=== PATIENT | female | born 1945 | race Caucasian/White ===

== ENCOUNTER 2021-05-23 08:05 | Day surgery (SDC) | payer MEDICARE ==
[~2021-05-23] VITALS: Ht 170.2 cm; Wt 72.1 kg
[~2021-05-23 08:05] MED LIST: ESTR-71 TD; LEVO125T PO
[2021-05-23] MEDS ORDERED: normal saline 1000ml 1,000 ML IV PRN (08:30)
[2021-05-23] MEDS ORDERED: CARV6.253 PO (08:48)
[2021-05-23] MEDS ORDERED: UBID200C37 PO (08:49)
[2021-05-23] MEDS ORDERED: [UNRECOGNIZED DRUG - CODE] PO (08:50)
[2021-05-23] MEDS ORDERED: ZINC50TA67 PO (08:52)
[2021-05-23] MEDS ORDERED: Tumeric PO (08:52)
[2021-05-23] MEDS ORDERED: Vitamin D3 PO (08:55)
[2021-05-23] MEDS ORDERED: OMEG1CAP13 PO (08:55)
[2021-05-23 09:30] VITALS: BP 155/91
== END 2021-05-23 12:03 | disposition home or self-care (01) ==
LOC: SSTAY O 08:05
PROVIDERS: ATTEND Preventive Medicine Aerospace Medicine
DX: C56.9 Malignant neoplasm of unspecified ovary (principal); Z53.8 Procedure and treatment not carried out for other reasons; B99.8 Other infectious disease; I10 Essential (primary) hypertension; Z20.822 Contact with and (suspected) exposure to COVID-19; Z79.899 Other long term (current) drug therapy
CPT/HCPCS: 87635; C9803

== ENCOUNTER 2021-06-06 07:28 | Day surgery (SDC) | payer MEDICARE ==
[2021-06-06] VITALS (10 sets, daily range): BP systolic 125–152; BP diastolic 63–83
[~2021-06-06] VITALS: Ht 170.2 cm; Wt 70.1 kg
[~2021-06-06 07:28] MED LIST changes: +CARV6.253 PO; -ESTR-71 TD; +OMEG1CAP13 PO; +Tumeric PO; +UBID200C37 PO; +Vitamin D3 PO; +ZINC50TA67 PO; +[UNRECOGNIZED DRUG - CODE] PO
[2021-06-06] MEDS ORDERED: LIDOcaine 1% 30ml preserv. free vial SQ STA (07:43)
[2021-06-06] MEDS ORDERED: albumin 25% 100mL bottle x 1 IV PRN (07:50)
[2021-06-06] MEDS ORDERED: SPIR25TA5 PO (07:55)
== END 2021-06-06 10:42 | disposition home or self-care (01) ==
LOC: SSTAY O 07:28
PROVIDERS: ATTEND Radiology Diagnostic Radiology
DX: R18.8 Other ascites (principal); E03.9 Hypothyroidism, unspecified; Z85.43 Personal history of malignant neoplasm of ovary; Z98.890 Other specified postprocedural states; Z90.710 Acquired absence of both cervix and uterus; Z88.8 Allergy status to other drugs, medicaments and biological substances; Z88.5 Allergy status to narcotic agent; Z91.013 Allergy to seafood; Z79.899 Other long term (current) drug therapy
CPT/HCPCS: 49083; J3490; P9047

== ENCOUNTER 2021-06-13 08:38 | Day surgery (SDC) | payer MEDICARE ==
[~2021-06-13] VITALS: Ht 167.6 cm; Wt 62.3 kg
[~2021-06-13 08:38] MED LIST changes: -CARV6.253 PO; +SPIR25TA5 PO; -Tumeric PO
[2021-06-13 08:50] VITALS: BP 145/68
[2021-06-13] MEDS ORDERED: resveratrol PO (09:55)
[2021-06-13] MEDS ORDERED: Lasix PO (09:55)
[2021-06-13] MEDS ORDERED: CYAN100T47 PO (09:56)
[2021-06-13] MEDS ORDERED: Tumeric PO (09:57)
[2021-06-13] MEDS ORDERED: fentaNYL/PF 50MCG/1 ML 2ML syringe ONE ×2 (11:00→11:35)
[2021-06-13] MEDS ORDERED: midazolam 1 mg/ML 2ml injection ONE (11:00)
[2021-06-13] MEDS ORDERED: ceFAZolin/D5W- 1GM premix 50 ML IV ONE (11:35)
[2021-06-13 12:00] VITALS: BP 144/73
[2021-06-13 12:15] VITALS: BP 158/92
[2021-06-13] MEDS ORDERED: oxyCODONE IR 5mg (immed. release) tablet PO ONE (12:15)
[2021-06-13 12:30] VITALS: BP 159/69
[2021-06-13 12:45] VITALS: BP 137/73
[2021-06-13 13:00] VITALS: BP 125/68
== END 2021-06-13 13:00 | disposition home or self-care (01) ==
LOC: SSTAY O 08:38
PROVIDERS: ATTEND Preventive Medicine Aerospace Medicine
DX: C56.9 Malignant neoplasm of unspecified ovary (principal); R18.0 Malignant ascites; Z88.5 Allergy status to narcotic agent; Z88.8 Allergy status to other drugs, medicaments and biological substances; Z91.013 Allergy to seafood
CPT/HCPCS: 49418; 99152; 99153; J0690; J2250; J3010; A9270

== ENCOUNTER 2021-07-24 08:38 | Emergency (ER) | payer MEDICARE ==
[~2021-07-24] VITALS: Ht 170.2 cm; Wt 68.0 kg
[~2021-07-24 08:38] MED LIST changes: +CYAN100T47 PO; -LEVO125T PO; +LIDOcaine 1% W/epiNEPHrine 1:100,000 20ml vial ONE; +Lasix PO; -SPIR25TA5 PO; +Tumeric PO; +resveratrol PO
[2021-07-24 09:33] LABS: BASOPHILS % (AUTO) 0.3 % (0-1); EOSINOPHILS # (AUTO) 0.1 X10'3 (0-0.9); HEMATOCRIT 36.3 % (35.0-45.0); HEMOGLOBIN 11.9 g/dl (12.0-16.0); LYMPHOCYTES # (AUTO) 0.5 X10'3 (1.1-4.8); LYMPHOCYTES % (AUTO) 5.1 % (21-51); MEAN CORPUSCULAR HEMOGLOBIN 28.4 PG (27.0-31.0); MEAN CORPUSCULAR HGB CONC 32.8 g/dL (33.0-36.5); MEAN CORPUSCULAR VOLUME 86.8 FL (78-98); MEAN PLATELET VOLUME 7.4 FL (7.4-10.4); MONOCYTES % (AUTO) 10.1 % (2-12); NEUTROPHILS # (AUTO) 8.1 X10'3 (1.8-7.7); NEUTROPHILS % (AUTO) 83.5 % (42-75); PLATELET COUNT 374 X10'3 (140-440); RED BLOOD COUNT 4.18 X10'6 (4.20-5.60); WHITE BLOOD COUNT 9.7 X10'3 (4.5-11.0)
[2021-07-24 10:03] LABS: ALANINE AMINOTRANSFERASE 17 U/L (12-78); ALBUMIN 2.8 G/DL (3.4-5.0); ALBUMIN/GLOBULIN RATIO 0.8 (1.1-1.5); ANION GAP 5 (8-16); ASPARTATE AMINO TRANSFERASE 18 U/L (10-37); BILIRUBIN,TOTAL 0.4 MG/DL (0.1-1.0); BLOOD UREA NITROGEN 16 MG/DL (7-18); BUN/CREATININE RATIO 15.2 (6.6-38.0); CALCIUM 9.4 MG/DL (8.5-10.1); CHLORIDE 101 MMOL/L (99-107); CREATININE 1.05 MG/DL (0.40-0.90); GLUCOSE 115 MG/DL (70-104); POTASSIUM 4.4 MMOL/L (3.5-5.1); SODIUM 138 MMOL/L (135-145); TOTAL CARBON DIOXIDE 31.7 MMOL/L (24-32); TOTAL PROTEIN 6.5 G/DL (6.4-8.2); eGFR 51 ML/MIN
--- NOTE | 2021-07-24 12:16 | NUR ---
THORACENTESIS PERFORMED AT BEDSIDE BY DR REYES
[2021-07-24 14:00] VITALS: BP 121/64
[2021-07-24 14:32] LABS: LDH,BODY FLUID 977 U/L; TOTAL PROTEIN,BODY FLUID 4.4 G/DL
[2021-07-24 15:05] LABS: BFAPPEAR CLOUDY
[2021-07-24 15:06] LABS: BFCOLOR YELLOW
[2021-07-24 15:07] LABS: BFVOLUME 60 ML
[2021-07-24 15:08] LABS: BF RBC COUNT 425 /CU MM; BF WBC COUNT 1130 /CU MM (0-1000); EOSINOPHILS,BODY FLUID 2 %; LYMPHOCYTES,BODY FLUID 9 %; MONOCYTES,BODY FLUID 8 %; NEUTROPHILS,BODY FLUID 57 %
== END 2021-07-24 14:05 | disposition home or self-care (01) ==
LOC: ER 08:39
DX: J90 Pleural effusion, not elsewhere classified (principal); R06.02 Shortness of breath; R07.89 Other chest pain; Z85.43 Personal history of malignant neoplasm of ovary; Z90.710 Acquired absence of both cervix and uterus; Z98.890 Other specified postprocedural states; Z88.5 Allergy status to narcotic agent; Z88.8 Allergy status to other drugs, medicaments and biological substances; Z79.899 Other long term (current) drug therapy
CPT/HCPCS: 32555; 36415; 71045; 80053; 83615; 83880; 84145; 84157; 84484; 85025; 87070; 89051; 93005; 99285; J3490

== ENCOUNTER 2021-07-31 08:06 | Emergency (ER) | payer MEDICARE ==
[~2021-07-31] VITALS: Ht 170.2 cm; Wt 52.4 kg
[~2021-07-31 08:06] MED LIST changes: -LIDOcaine 1% W/epiNEPHrine 1:100,000 20ml vial ONE
[2021-07-31 09:12] LABS: BASOPHILS % (AUTO) 0.5 % (0-1); EOSINOPHILS # (AUTO) 0.2 X10'3 (0-0.9); EOSINOPHILS % (AUTO) 2.6 % (0-6); HEMATOCRIT 34.9 % (35.0-45.0); HEMOGLOBIN 11.3 g/dl (12.0-16.0); LYMPHOCYTES # (AUTO) 0.6 X10'3 (1.1-4.8); LYMPHOCYTES % (AUTO) 8.2 % (21-51); MEAN CORPUSCULAR HGB CONC 32.2 g/dL (33.0-36.5); MEAN CORPUSCULAR VOLUME 86.7 FL (78-98); MONOCYTES # (AUTO) 0.6 X10'3 (0-0.9); MONOCYTES % (AUTO) 8.5 % (2-12); NEUTROPHILS # (AUTO) 5.6 X10'3 (1.8-7.7); NEUTROPHILS % (AUTO) 80.2 % (42-75); PLATELET COUNT 388 X10'3 (140-440); RED BLOOD COUNT 4.03 X10'6 (4.20-5.60); RED CELL DISTRIBUTION WIDTH 14.9 % (11.5-14.5); WHITE BLOOD COUNT 6.9 X10'3 (4.5-11.0)
[2021-07-31 09:24] LABS: ALANINE AMINOTRANSFERASE 16 U/L (12-78); ALBUMIN 2.6 G/DL (3.4-5.0); ALBUMIN/GLOBULIN RATIO 0.7 (1.1-1.5); ALKALINE PHOSPHATASE 52 IU/L (46-116); ANION GAP 7 (8-16); ASPARTATE AMINO TRANSFERASE 17 U/L (10-37); BILIRUBIN,TOTAL 0.3 MG/DL (0.1-1.0); BLOOD UREA NITROGEN 23 MG/DL (7-18); BUN/CREATININE RATIO 20.7 (6.6-38.0); CALCIUM 8.9 MG/DL (8.5-10.1); CHLORIDE 101 MMOL/L (99-107); CREATININE 1.11 MG/DL (0.40-0.90); GLUCOSE 108 MG/DL (70-104); SODIUM 140 MMOL/L (135-145); TOTAL CARBON DIOXIDE 31.7 MMOL/L (24-32); TOTAL PROTEIN 6.2 G/DL (6.4-8.2); eGFR 48 ML/MIN
[2021-07-31 09:30] VITALS: BP 133/66
== END 2021-07-31 10:11 | disposition home or self-care (01) ==
LOC: ER 08:06
DX: J91.0 Malignant pleural effusion (principal); R05.9 Cough, unspecified; R06.02 Shortness of breath; Z90.710 Acquired absence of both cervix and uterus; Z98.890 Other specified postprocedural states; Z85.43 Personal history of malignant neoplasm of ovary; Z88.5 Allergy status to narcotic agent; Z88.8 Allergy status to other drugs, medicaments and biological substances; Z79.899 Other long term (current) drug therapy
CPT/HCPCS: 36415; 71045; 80053; 85025; 85610; 99284

== ENCOUNTER 2021-08-05 07:42 | Day surgery (SDC) | payer MEDICARE ==
[~2021-08-05] VITALS: Ht 167.6 cm; Wt 70.4 kg
[2021-08-05] MEDS ORDERED: albumin 25% 100mL bottle x 1 IV PRN (08:10)
[2021-08-05] MEDS ORDERED: LEVO112T5 PO (08:12)
[2021-08-05] MEDS ORDERED: ROSU40TA22 PO (08:12)
[2021-08-05] MEDS ORDERED: CARV25TA2 PO (08:12)
[2021-08-05] MEDS ORDERED: FURO20TA4 PO (08:12)
[2021-08-05 08:36] VITALS: BP 132/77
[2021-08-05] MEDS ORDERED: LIDOcaine 1%/PF 5ML 10 MG/ML VIAL IJ ONE (09:30)
== END 2021-08-05 10:45 | disposition home or self-care (01) ==
LOC: SSTAY O 07:42
PROVIDERS: ATTEND Radiology Diagnostic Radiology
DX: J90 Pleural effusion, not elsewhere classified (principal); E03.9 Hypothyroidism, unspecified; Z20.822 Contact with and (suspected) exposure to COVID-19; Z85.43 Personal history of malignant neoplasm of ovary; Z90.710 Acquired absence of both cervix and uterus; Z98.890 Other specified postprocedural states; Z88.8 Allergy status to other drugs, medicaments and biological substances; Z88.5 Allergy status to narcotic agent; Z91.013 Allergy to seafood; Z79.899 Other long term (current) drug therapy
CPT/HCPCS: 32555; 87635; C9803

== ENCOUNTER 2021-08-15 07:44 | Day surgery (SDC) | payer MEDICARE ==
[~2021-08-15] VITALS: Ht 170.2 cm; Wt 60.3 kg
[~2021-08-15 07:44] MED LIST changes: +CARV25TA2 PO; -CYAN100T47 PO; +FURO20TA4 PO; +LEVO112T5 PO; +LIDOcaine 1%/PF 5ML 10 MG/ML VIAL IJ ONE; +LORA-269 PO; -Lasix PO; -OMEG1CAP13 PO; +ROSU40TA22 PO; -Tumeric PO; -UBID200C37 PO; -Vitamin D3 PO; -ZINC50TA67 PO; -[UNRECOGNIZED DRUG - CODE] PO; -resveratrol PO
[2021-08-15 08:00] VITALS: BP 160/90
[2021-08-15] MEDS ORDERED: albumin 25% 100mL bottle x 1 IV PRN (08:05)
[2021-08-15 09:05] VITALS: BP 160/90
[2021-08-15 09:12] VITALS: BP 121/50
[2021-08-15 09:16] VITALS: BP 121/50
[2021-08-15 09:30] VITALS: BP 121/74
[2021-08-15 09:45] VITALS: BP 143/95
== END 2021-08-15 10:00 | disposition home or self-care (01) ==
LOC: SSTAY O 07:44
PROVIDERS: ATTEND Radiology Diagnostic Radiology
DX: J90 Pleural effusion, not elsewhere classified (principal); E03.9 Hypothyroidism, unspecified; Z85.43 Personal history of malignant neoplasm of ovary; Z90.710 Acquired absence of both cervix and uterus; Z98.890 Other specified postprocedural states; Z79.899 Other long term (current) drug therapy
CPT/HCPCS: 32555

== ENCOUNTER 2021-08-22 08:17 | Day surgery (SDC) | payer MEDICARE ==
[~2021-08-22] VITALS: Ht 170.2 cm; Wt 60.7 kg
[2021-08-22] VITALS (12 sets, daily range): BP systolic 95–152; BP diastolic 55–79
[~2021-08-22 08:17] MED LIST changes: -LIDOcaine 1%/PF 5ML 10 MG/ML VIAL IJ ONE
[2021-08-22] MEDS ORDERED: albumin 25% 100mL bottle x 1 IV PRN (08:35)
[2021-08-22] MEDS ORDERED: LIDOcaine 1%/PF 5ML 10 MG/ML VIAL SQ ONE ×2 (08:35→08:55)
[2021-08-22] MEDS ORDERED: SPIR25TA PO (08:42)
[2021-08-22] MEDS ORDERED: spironolactone 25 MG tablet PO ONE (09:40)
[2021-08-22] MEDS ORDERED: levoTHYROXINE 112mcg tablet PO ONE (09:40)
[2021-08-22] MEDS ORDERED: carVEDilol 12.5mg tablet PO ONE (09:40)
[2021-08-22] MEDS ORDERED: furosemide 20MG tablet PO ONE (09:40)
== END 2021-08-22 13:25 | disposition home or self-care (01) ==
LOC: SSTAY O 08:17
PROVIDERS: ATTEND Preventive Medicine Aerospace Medicine
DX: J90 Pleural effusion, not elsewhere classified (principal); E03.9 Hypothyroidism, unspecified; Z85.43 Personal history of malignant neoplasm of ovary; Z90.710 Acquired absence of both cervix and uterus; Z98.890 Other specified postprocedural states; Z79.899 Other long term (current) drug therapy
CPT/HCPCS: 32555

== ENCOUNTER 2021-08-29 08:43 | Day surgery (SDC) | payer MEDICARE ==
[~2021-08-29] VITALS: Ht 170.2 cm; Wt 59.7 kg
[2021-08-29] VITALS (7 sets, daily range): BP systolic 120–141; BP diastolic 68–79
[~2021-08-29 08:43] MED LIST changes: -LORA-269 PO; +SPIR25TA PO
[2021-08-29] MEDS ORDERED: LIDOcaine 1%/PF 5ML 10 MG/ML VIAL SQ ONE (08:55)
[2021-08-29] MEDS ORDERED: albumin 25% 100mL bottle x 1 IV PRN (09:10)
== END 2021-08-29 11:12 | disposition home or self-care (01) ==
LOC: SSTAY O 08:43
PROVIDERS: ATTEND Preventive Medicine Aerospace Medicine
DX: J90 Pleural effusion, not elsewhere classified (principal); E03.9 Hypothyroidism, unspecified; Z85.43 Personal history of malignant neoplasm of ovary; Z90.710 Acquired absence of both cervix and uterus; Z98.890 Other specified postprocedural states; Z79.899 Other long term (current) drug therapy
CPT/HCPCS: 32555

== ENCOUNTER 2021-09-05 09:00 | Day surgery (SDC) | payer MEDICARE ==
[2021-09-05] VITALS (8 sets, daily range): BP systolic 124–148; BP diastolic 71–92
[2021-09-05] MEDS ORDERED: LIDOcaine 1%/PF 5ML 10 MG/ML VIAL SQ ONE (09:05)
[2021-09-05] MEDS ORDERED: albumin 25% 100mL bottle x 1 IV PRN (09:15)
== END 2021-09-05 11:00 | disposition home or self-care (01) ==
LOC: SSTAY O 09:00
PROVIDERS: ATTEND Preventive Medicine Aerospace Medicine
DX: J90 Pleural effusion, not elsewhere classified (principal); E03.9 Hypothyroidism, unspecified; Z85.43 Personal history of malignant neoplasm of ovary; Z90.710 Acquired absence of both cervix and uterus; Z98.890 Other specified postprocedural states; Z88.8 Allergy status to other drugs, medicaments and biological substances; Z88.5 Allergy status to narcotic agent; Z91.013 Allergy to seafood; Z79.899 Other long term (current) drug therapy
CPT/HCPCS: 32555; J3490

== ENCOUNTER 2021-09-12 08:41 | Day surgery (SDC) | payer MEDICARE ==
[2021-09-12] VITALS (10 sets, daily range): BP systolic 119–149; BP diastolic 53–101
[~2021-09-12] VITALS: Ht 167.6 cm; Wt 60.8 kg
[~2021-09-12 08:41] MED LIST changes: +LIDOcaine 1%/PF 5ML 10 MG/ML VIAL SQ ONE
== END 2021-09-12 12:00 | disposition home or self-care (01) ==
LOC: SSTAY O 08:41
PROVIDERS: ATTEND Radiology Vascular & Interventional Radiology
DX: J90 Pleural effusion, not elsewhere classified (principal); E03.9 Hypothyroidism, unspecified; Z85.43 Personal history of malignant neoplasm of ovary; Z90.710 Acquired absence of both cervix and uterus; Z98.890 Other specified postprocedural states; Z79.899 Other long term (current) drug therapy
CPT/HCPCS: 32555; J3490

== ENCOUNTER 2021-09-19 08:46 | Day surgery (SDC) | payer MEDICARE ==
[~2021-09-19] VITALS: Ht 170.2 cm; Wt 61.5 kg
[2021-09-19] VITALS (7 sets, daily range): BP systolic 113–135; BP diastolic 75–89
[~2021-09-19 08:46] MED LIST changes: +LIDOcaine 1%/PF 5ML 10 MG/ML VIAL IJ ONE; -LIDOcaine 1%/PF 5ML 10 MG/ML VIAL SQ ONE
[2021-09-19] MEDS ORDERED: LORA-269 PO ×2 (09:04→13:38)
[2021-09-19] MEDS ORDERED: HYDR-3965 PO (09:04)
[2021-09-19] MEDS ORDERED: MORPHINE PO (09:07)
[2021-09-19] MEDS ORDERED: albumin 25% 100mL bottle x 1 IV PRN (09:15)
--- NOTE | 2021-09-19 11:00 | NUR ---
NS bolus started as ordered.
--- NOTE | 2021-09-19 11:45 | NUR ---
Hr remains 140's. 1000cc NS bolus in progress. requests patient to go to ER due to elevated HR and patient stating she doesn't feel well. Spoke with Tyrone FLORES and recommends pt got to ER. Pt transferred to Bed 14 in ER.
[2021-09-19] MEDS ORDERED: SPIR25TA5 PO (13:38)
[2021-09-19] MEDS ORDERED: LEVO137C2 PO (13:38)
[2021-09-19] MEDS ORDERED: GABA300C PO (13:38)
[2021-09-19] MEDS ORDERED: HYDR-3973 PO (13:38)
[2021-09-19] MEDS ORDERED: LIDO1ADH67 TOP (13:38)
[2021-09-19] MEDS ORDERED: MORP100S7 PO (13:38)
[2021-09-19] MEDS ORDERED: FURO20TA4 PO (13:38)
== END 2021-09-19 11:45 | disposition home or self-care (01) ==
LOC: SSTAY O 08:46
PROVIDERS: ATTEND Radiology Vascular & Interventional Radiology
DX: J90 Pleural effusion, not elsewhere classified (principal); E03.9 Hypothyroidism, unspecified; Z88.8 Allergy status to other drugs, medicaments and biological substances; Z88.5 Allergy status to narcotic agent; Z91.013 Allergy to seafood; Z85.43 Personal history of malignant neoplasm of ovary; Z90.710 Acquired absence of both cervix and uterus; Z98.890 Other specified postprocedural states; Z79.899 Other long term (current) drug therapy
CPT/HCPCS: 32555

== ENCOUNTER 2021-09-19 11:45 | Emergency (ER) | payer MEDICARE ==
[~2021-09-19] VITALS: Ht 168.9 cm; Wt 135.0 kg
[~2021-09-19 11:45] MED LIST changes: +HYDR-3965 PO; -LIDOcaine 1%/PF 5ML 10 MG/ML VIAL IJ ONE; +LORA-269 PO; +MORPHINE PO
[2021-09-19] MEDS ORDERED: ondansetron/PF 4mg/2ml inj IV ONE (11:50)
[2021-09-19] MEDS ORDERED: normal saline 1000ML IV soln IVB ONE (11:50)
[2021-09-19] MEDS ORDERED: diltiazem 5mg/ml 5ml inj. IV ONE (11:55)
[2021-09-19 12:10] LABS: EOSINOPHILS % (AUTO) 0.5 % (0-6); HEMOGLOBIN 10.8 g/dl (12.0-16.0); LYMPHOCYTES # (AUTO) 0.1 X10'3 (1.1-4.8); RED CELL DISTRIBUTION WIDTH 15.5 % (11.5-14.5)
[2021-09-19 12:11] LABS: BASOPHILS % (AUTO) 0.2 % (0-1); HEMATOCRIT 33.5 % (35.0-45.0); LYMPHOCYTES % (AUTO) 2.4 % (21-51); MEAN CORPUSCULAR HGB CONC 32.3 g/dL (33.0-36.5); MEAN CORPUSCULAR VOLUME 83.4 FL (78-98); MEAN PLATELET VOLUME 6.4 FL (7.4-10.4); MONOCYTES # (AUTO) 0.6 X10'3 (0-0.9); MONOCYTES % (AUTO) 11.2 % (2-12); NEUTROPHILS # (AUTO) 4.2 X10'3 (1.8-7.7); NEUTROPHILS % (AUTO) 85.7 % (42-75); PLATELET COUNT 329 X10'3 (140-440); RED BLOOD COUNT 4.01 X10'6 (4.20-5.60); WHITE BLOOD COUNT 4.9 X10'3 (4.5-11.0)
[2021-09-19 12:22] LABS: ALANINE AMINOTRANSFERASE 31 U/L (12-78); ALBUMIN 1.9 G/DL (3.4-5.0); ALBUMIN/GLOBULIN RATIO 0.5 (1.1-1.5); ALKALINE PHOSPHATASE 194 IU/L (46-116); ANION GAP 5 (8-16); ASPARTATE AMINO TRANSFERASE 29 U/L (10-37); BILIRUBIN,TOTAL 0.4 MG/DL (0.1-1.0); BLOOD UREA NITROGEN 36 MG/DL (7-18); BUN/CREATININE RATIO 27.3 (6.6-38.0); CALCIUM 8.4 MG/DL (8.5-10.1); CHLORIDE 96 MMOL/L (99-107); CREATININE 1.32 MG/DL (0.40-0.90); GLUCOSE 115 MG/DL (70-104); POTASSIUM 5.3 MMOL/L (3.5-5.1); SODIUM 131 MMOL/L (135-145); TOTAL CARBON DIOXIDE 29.7 MMOL/L (24-32); TOTAL PROTEIN 5.8 G/DL (6.4-8.2); eGFR 39 ML/MIN
[2021-09-19] MEDS ORDERED: diltiazem-D5W 125mg/125ml 125 ML IV SCH (12:40)
[2021-09-19] MEDS ORDERED: diltiazem-D5W 125mg/125ml 100 ML IV SCH (12:43)
[2021-09-19] MEDS ORDERED: diltiazem-NS 100mg/100ml 100 ML IV SCH (12:49)
[2021-09-19] MEDS ORDERED: LEVO137C2 PO (13:38)
[2021-09-19] MEDS ORDERED: GABA300C PO (13:38)
[2021-09-19] MEDS ORDERED: LIDO1ADH67 TOP (13:38)
[2021-09-19] MEDS ORDERED: LORA-269 PO (13:38)
[2021-09-19] MEDS ORDERED: HYDR-3973 PO (13:38)
[2021-09-19] MEDS ORDERED: MORP100S7 PO (13:38)
[2021-09-19] MEDS ORDERED: SPIR25TA5 PO (13:38)
[2021-09-19] MEDS ORDERED: FURO20TA4 PO (13:38)
[2021-09-19] MEDS ORDERED: digoxin 250mcg/ml 2ml ampule IV ONE (13:55)
[2021-09-19] MEDS ORDERED: HYDROcodone/acetaminophen 5mg/325mg tablet PO ONE (14:20)
[2021-09-19 15:20] VITALS: BP 104/67
== END 2021-09-19 15:28 | disposition hospice, home (50) ==
LOC: ER 11:46
DX: I48.92 Unspecified atrial flutter (principal); R00.0 Tachycardia, unspecified; J91.0 Malignant pleural effusion; C78.00 Secondary malignant neoplasm of unspecified lung; I50.9 Heart failure, unspecified; Z85.118 Personal history of other malignant neoplasm of bronchus and lung; Z85.43 Personal history of malignant neoplasm of ovary; Z90.710 Acquired absence of both cervix and uterus; Z98.890 Other specified postprocedural states; Z88.5 Allergy status to narcotic agent; Z88.8 Allergy status to other drugs, medicaments and biological substances; Z79.899 Other long term (current) drug therapy
CPT/HCPCS: 36415; 71045; 80053; 83880; 84484; 85025; 93005; 96361; 96365; 96366; 96375; 96376; 99291; J1160; J2405; J3490; J7030; 32555

== ENCOUNTER 2021-09-24 06:00 | Day surgery (SDC) | payer MEDICARE ==
[~2021-09-24] VITALS: Ht 167.6 cm; Wt 63.0 kg
[~2021-09-24 06:00] MED LIST changes: -CARV25TA2 PO; +GABA300C PO; -HYDR-3965 PO; +HYDR-3973 PO; -LEVO112T5 PO; +LEVO137C2 PO; +LIDO1ADH67 TOP; +MORP100S7 PO; -MORPHINE PO; -ROSU40TA22 PO; -SPIR25TA PO; +SPIR25TA5 PO
[2021-09-24 06:46] VITALS: BP 131/91
[2021-09-24] MEDS ORDERED: LIDOCAINE 1% w/preservative (10 MG/ML) inj. 10mL VIAL ONE (08:12)
[2021-09-24] MEDS ORDERED: midazolam 1 mg/ML 2ml injection ONE (08:12)
[2021-09-24] MEDS ORDERED: fentaNYL/PF 50MCG/1 ML 2ML syringe ONE (08:13)
--- NOTE | 2021-09-24 09:03 | NUR ---
Pt left unit for procedure.
[2021-09-24] MEDS ORDERED: LIDOcaine 1% W/epiNEPHrine 1:100,000 20ml vial ONE (09:19)
[2021-09-24 10:00] VITALS: BP 121/83
[2021-09-24 10:15] VITALS: BP 123/80
[2021-09-24 10:30] VITALS: BP 122/85
[2021-09-24 10:45] VITALS: BP 122/86
== END 2021-09-24 10:57 | disposition home or self-care (01) ==
LOC: SSTAY O 06:00
PROVIDERS: ATTEND Preventive Medicine Aerospace Medicine
DX: C56.9 Malignant neoplasm of unspecified ovary (principal); J91.0 Malignant pleural effusion; I47.1 Supraventricular tachycardia; Z88.5 Allergy status to narcotic agent; Z88.8 Allergy status to other drugs, medicaments and biological substances; Z91.013 Allergy to seafood; Z79.899 Other long term (current) drug therapy
CPT/HCPCS: 32550; J2250; J3010; J3490; 99152; 99153